=== PATIENT | male | born 1950 | race Caucasian/White ===

== ENCOUNTER 2024-06-25 07:27 | Emergency (ER) | payer MEDICARE, OTHER, SELFPAY ==
[2024-06-25 07:45] LABS: Glucose - Point of Care 157 mg/dl (70-99)
--- NOTE | 2024-06-25 08:12 | ED.GENMED ---
History of Present Illness
General
Chief Complaint: Dizziness
Time Seen by Provider: 06/25/24 08:01
History of Present Illness
History of Present Illness:
Patient presents to the emergency department with vertigo. Symptoms started yesterday. He states when he turned his head to the right he suddenly felt dizzy. This was brief and lasted for minutes. It was associated with room spinning and nausea.
This morning he woke up and had a similar episode. He does not have any symptoms at rest. There is no neck pain. No numbness weakness tingling. No speech difficulty. No history of vertigo
Past History
Past History
ED Past Medical History: HTN, Hypercholesterolemia, NIDDM, Other (Sleep apnea, uses CPAP) and Other (Prostate cancer)
ED Past Surgical History: Other (Prostatectomy 1999, appendectomy 1954, right knee replacement)
Social History
Tobacco: Former smoker
Drug: None
Personal:
Living: with family (daughter)
Employment: Employed
Family History
Family History: Other
Phy Exam
Physical Exam
Physical Exam:
GENERAL APPEARANCE: NAD, well developed/ well nourished
EYES lids/conjunctiva normal
EARS/NOSE/THROAT Mucous membranes moist, uvula midline without oral pharyngeal erythema, exudate or swelling
HEAD/NECK normocephalic atraumatic, neck is supple.
RESPIRATORY respiratory effort normal, speaks in full sentences, no accessory muscle use. Lungs clear to auscultation without rhonchi, wheezes, rales
CARDIAC Regular rate and rhythm, no edema.
ABDOMINAL Soft, ND/NT. No pulsatile masses on exam, rebound tenderness, Neves sign or pain over Mcburney's point.
MUSCLES/EXTREMITIES No abnormal range of motion, no swelling.
SKIN Warm, pink and dry. No rashes
NEUROLOGICAL Bj-Hallpike is positive for rotary nystagmus to the right. Bereket maneuver performed. No nystagmus at rest. Speech is clear and appropriate. Normal level of consciousness. 5/5 strength in all extremities. No dysmetria or ataxia.
Rapid alternating movements intact. normal gait.
PSYCH Normal mood and affect. Judgement/competence is appropriate
Course
Orders/Labs/Results
Orders:
Orders
06/25/24 08:11
Meclizine [Antivert] 25 mg PO NOW STA
06/25/24 08:15
Electrocardiogram (*1) Urgent
Reason for Study: Vertigo / Dizzy
06/25/24 08:53
Complete Blood Count/With Diff Urgent
Comprehensive Metabolic Panel Urgent
Abnormal Lab Results
06/25/24 06/25/24
07:43 08:53
MPV 10.7 H fL
(7.4-10.4)
BUN 22 H mg/dl
(9-20)
Glucose 164 H mg/dl
(70-99)
ALT 56 H U/L
(0-50)
POC Glucose 157 H mg/dl
(70-99)
06/25/24 08:53
06/25/24 08:53
Vital Signs
Initial and Last Documented VS:
Initial Vital Signs
Temp Pulse Resp Pulse Ox
97.8 F 71 16 98
06/25/24 07:41 06/25/24 07:41 06/25/24 07:41 06/25/24 07:41
Last Documented Vital Signs
Temp Pulse Resp Pulse Ox
97.8 F 71 16 98
06/25/24 07:41 06/25/24 07:41 06/25/24 07:41 06/25/24 07:41
*Critical Care Note
Total Time (30-74mins, 75-104mins- exclusive of procedures): Not Applicable
Update Note
Update Note:
BP is 120/76
ED Attending Note
ED Attending Note
ED Attending Note:
History suggestive of benign paroxysmal positional vertigo. Will check basic labs, give meclizine. Bereket maneuver performed. Will reassess
Patient symptoms have entirely resolved. He is feeling much better. Will refer to ENT for outpatient management.
-
Portions of this chart may have been created with voice recognition software.� Occasional wrong word or��sound alike� substitutions may have occurred due to the inherent limitations of voice recognition software.
Discharge Plan
Departure
Patient Disposition: Home (Routine Discharge)
Date of Disposition: 06/25/24
Time of Disposition: 09:31
Patient with high blood pressure during this ER visit?: No
Discharge Problem:
Vertigo
Instructions: Vertigo (a type of dizziness), Vestibular Exercises
Prescriptions:
No Action
amlodipine-benazepril 1 CAPSULE capsule
1 cap PO DAILY
glimepiride 4 MG tablet
4 mg PO BID@0800,1700
Patient Comments:
morning, noon
sitagliptin phos-metformin [Janumet] 1 EACH tablet
1 ea PO BID@0800,1700
Patient Comments:
morning, afternoon
aspirin 81 MG tablet,delayed release (DR/EC)
81 mg PO DAILY
zdvfrag-ehtvfsvxqcsbv-ryefqhgh 1 TABLET tablet
1 tab PO Q6HPRN PRN (Reason: mild pain)
pantoprazole 40 MG tablet,delayed release (DR/EC)
40 mg PO DAILY Qty: 90 0RF
prednisone 20 mg tablet
40 mg PO DAILY 6 Days Qty: 12 0RF
doxycycline hyclate 100 mg capsule
100 mg PO BID Qty: 19 0RF
valacyclovir 1 gram tablet
1,000 mg PO TID Qty: 20 0RF
Referrals:
Ton Dejesus PA-C [Family Provider] -
Kayce Shaikh MD [Active] - ([facility])
Interventions
Interventions:
*Risk Screen - Suicide Last Done: 06/25/24 07:41
*General Assessment Last Done: 06/25/24 08:39
*Neglect/Abuse Screening Last Done: 06/25/24 07:41
ED- Fall Risk Assessment Last Done: 06/25/24 08:39
*ED COVID-19 Vaccine History Last Done: 06/25/24 08:39
ED- Neurological Assessment Last Done: 06/25/24 08:39
ED- Cardiac Assessment Last Done: 06/25/24 08:39
ED Swallowing Screen Last Done: 06/25/24 08:39
Discharge Date and Time
Print Language: ARABIC
[2024-06-25 08:15] VITALS: BP 131/71
[2024-06-25 08:39] VITALS: BMI 35.1
[2024-06-25 09:00] VITALS: BP 120/76
[2024-06-25 09:04] LABS: % Basophils 0.6 % (0-2); % Eosinophils 1.8 % (0-6); % Immature Granulocytes 0.3 % (0-0.5); % Lymphocytes 25.4 % (20.5-51.1); % Monocytes 5.8 % (1.7-9.3); % Neutrophils 66.1 % (42.2-75.2); Absolute Basophils 0.1 10^3/uL (0-0.2); Absolute Eosinophils 0.1 10^3/uL (0-0.7); Absolute Monocytes 0.5 10^3/uL (0.1-0.6); Absolute Neutrophils 5.1 10^3/uL (1.4-6.5); Hematocrit 42.8 % (39.0-52.0); Hemoglobin 14.5 g/dL (13.0-18.0); Mean Corp Hgb Conc. 33.9 g/dL (33.0-37.0); Mean Corpuscular Hgb 30.5 pg (27.0-31.0); Mean Corpuscular Volume 89.9 fL (80.0-94.0); Mean Platelet Volume 10.7 fL (7.4-10.4); Nucleated Red Blood Cells % 0 % (-); Platelet Count 191 10^3/uL (130-400); Red Blood Cell Count 4.76 10^6/uL (4.70-6.10); Red Cell Dist. Width 12.3 % (11.5-14.5); White Blood Cell Count 7.7 10^3/uL (4.8-10.8)
[2024-06-25] MEDS: ANTIVERT 25 MG PO (09:05)
[2024-06-25 09:14] LABS: ALT (SGPT) 56 U/L (0-50); AST (SGOT) 48 U/L (17-59); Albumin 4.7 g/dl (3.5-5.0); Alkaline Phosphatase 98 U/L (38-126); Blood Urea Nitrogen 22 mg/dl (9-20); Calcium 9.7 mg/dl (8.4-10.2); Carbon Dioxide 27 mmol/L (22-30); Chloride 101 mmol/L (98-107); Estimated Creatinine Clearance 78 ml/min; Glucose 164 mg/dl (70-99); Potassium 4.3 mmol/L (3.5-5.1); Sodium 140 mmol/L (135-145); Total Bilirubin 0.5 mg/dl (0.2-1.3); Total Protein 7.2 g/dl (6.3-8.2); eGFR > 60.00
--- NOTE | 2024-06-25 10:04 | EDRN ---
Reviewed discharge instructions with patient. Verbalized understanding. Taken to lobby in wheelchair.
[2024-06-25 10:07] VITALS: BP 120/76
== END 2024-06-25 10:08 | disposition home or self-care (01) ==
LOC: EMR 07:27
PROVIDERS: EMERGENCY PHYSICIAN Emergency Medicine; FAMILY PHYSICIAN Physician Assistant Medical
DX: R42 Dizziness and giddiness (principal); Z87.891 Personal history of nicotine dependence
CPT/HCPCS: 99284; 80053; 82962; 85025; 93005